=== PATIENT | male | born 1980 | race African-American/Black ===

== ENCOUNTER 2022-09-14 16:13 | Emergency (ER) | payer BC ==
[2022-09-14 16:38] VITALS: BP 118/66; PULSE 51; RESP 18; TEMP 98; BMI 29.1
[2022-09-14] MEDS ORDERED: METHOCARBAMOL 500 MG TABLET PO ONE (18:34)
[2022-09-14] MEDS ORDERED: METHOCARBAMOL 500 MG TABLET ONE ×2 (18:49→18:50)
== END 2022-09-14 19:06 | disposition home or self-care (01) ==
LOC: JERFT 16:13 → JER 16:13 → JERFT 19:06
DX: M79.18 Myalgia, other site (principal)
CPT/HCPCS: 99283-25

== ENCOUNTER 2025-06-10 14:18 | Emergency (ER) | payer BC, OTHER ==
[2025-06-10 14:26] VITALS: BP 117/74; PULSE 56; RESP 20; TEMP 98.6; BMI 31.4
== END 2025-06-10 15:10 | disposition home or self-care (01) ==
LOC: JERFT 14:18
DX: J02.9 Acute pharyngitis, unspecified (principal); R05.9 Cough, unspecified; J06.9 Acute upper respiratory infection, unspecified
CPT/HCPCS: 99283-25